=== PATIENT | female | born 1985 | race African-American/Black ===

== ENCOUNTER 2021-10-17 14:40 | Inpatient (IN) | payer OTHER, SELFPAY ==
--- NOTE | 2021-10-17 | ECG_ITS ---
Test Reason : SUBST ABUSE Blood Pressure : / mmHG Vent. Rate : 077 BPM Atrial Rate : 077 BPM P-R Int : 140 ms QRS Dur : 076 ms QT Int : 392 ms P-R-T Axes : 066 056 053 degrees QTc Int : 443 ms Normal sinus rhythm Normal ECG No previous ECGs available Referred By: Aden Reyes Electronically Signed By:CADEN DUMONT
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
[2021-10-17 18:00] VITALS: BP 152/89; PULSE 91; RESP 16; TEMP 36.1; O2SAT 99
[2021-10-17] MEDS: LORazepam 1 MG TABLET 2 MG PO (19:39)
[2021-10-17] MEDS: HaloperidoL 5 MG TABLET PO (19:39)
[2021-10-17 20:21] VITALS: BMI 19.5
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
[2021-10-17] MEDS: Acetaminophen 325 MG TABLET 650 MG PO (21:55)
[2021-10-17] MEDS: OLANZapine 10 MG TABLET PO (21:55)
[2021-10-18] MEDS: cloNIDine HCL 0.1 MG TABLET PO ×2 (01:16→19:27)
[2021-10-18 06:00] VITALS: BP 127/74; PULSE 97; RESP 18; TEMP 36.3; O2SAT 99
[2021-10-18] MEDS: LORazepam 1 MG TABLET 2 MG PO (10:47)
[2021-10-18] MEDS: OLANZapine ODT 10 MG TAB.RAPDIS 20 MG TRANSLINGU (10:47)
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
[2021-10-18 19:20] VITALS: BP 140/98; PULSE 114; TEMP 36.3
[2021-10-18] MEDS: Acetaminophen 325 MG TABLET 650 MG PO (19:26)
[2021-10-18] MEDS: LORazepam 1 MG TABLET PO (19:26)
[2021-10-18] MEDS: hydrOXYzine HCL 25 MG TABLET PO (19:27)
[2021-10-18] MEDS: OLANZapine 10 MG TABLET 20 MG PO (22:34)
[2021-10-18] MEDS: QUEtiapine Fumarate 50 MG TABLET PO (22:38)
[2021-10-19] MEDS: LORazepam 1 MG TABLET PO ×5 (01:48→22:15)
[2021-10-19] MEDS: Acetaminophen 325 MG TABLET 650 MG PO ×2 (01:48→08:41)
[2021-10-19] MEDS: traZODone HCL 50 MG TABLET PO ×2 (01:59→22:15)
[2021-10-19] MEDS: hydrOXYzine HCL 25 MG TABLET PO ×2 (04:10→10:48)
[2021-10-19 06:00] VITALS: BP 137/94; PULSE 93; RESP 18; TEMP 36.3; O2SAT 99
--- NOTE | 2021-10-19 07:14 | PM.EVENT ---
Event Note Date of Service: 10/18/21 Event Note: Attempted to see pt at 11:30am on 10/18/21 for routine medical H+P. She was sleeping heavily, having just receivevd olanzapine, and thus could not be evaluated. Will reattempt at another time.
[2021-10-19] MEDS: OLANZapine ODT 10 MG TAB.RAPDIS TRANSLINGU (08:13)
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
[2021-10-19] MEDS: OLANZapine 5 MG TABLET PO (11:28)
[2021-10-19] MEDS: Albuterol Sulfate 90 MCG 8 GM INHALER 2 PUFF INHALE ×2 (11:28→18:25)
--- NOTE | 2021-10-19 11:32 | PC.NURSE ---
Patient labile, tearful, irritable in later morning. Redirectable, willing to take PRN medications.
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
[2021-10-19] MEDS: Divalproex Sodium 500 MG TABLET.DR PO ×2 (13:07→22:15)
[2021-10-19 18:20] VITALS: BP 140/90; PULSE 101; RESP 20; O2SAT 100
[2021-10-19] MEDS: cloNIDine HCL 0.1 MG TABLET PO ×2 (18:25→22:15)
[2021-10-19] MEDS: OLANZapine 10 MG TABLET 20 MG PO (22:15)
[2021-10-20] MEDS: LORazepam 1 MG TABLET PO ×2 (02:22→07:56)
[2021-10-20] MEDS: traZODone HCL 50 MG TABLET PO (02:22)
[2021-10-20 06:00] VITALS: BP 140/88; PULSE 95; RESP 18; TEMP 36.6; O2SAT 100
[2021-10-20] MEDS: OLANZapine ODT 10 MG TAB.RAPDIS TRANSLINGU (07:56)
[2021-10-20] MEDS: Divalproex Sodium 500 MG TABLET.DR PO (07:56)
[2021-10-20] MEDS: cloNIDine HCL 0.1 MG TABLET PO (07:59)
[2021-10-20 08:00] VITALS: BP 131/89; PULSE 101; RESP 16
[2021-10-20 08:32] LABS: CT PCR NOT DETECTED (Not Detect.); NG PCR NOT DETECTED (Not Detect.)
[2021-10-20 08:38] LABS: HBc Num1 0.25 S/CO (0.00-0.79); Hepatitis B Core Antibody Nonreactive (Nonreactive)
[2021-10-20 08:57] LABS: HBS Num1 > 1000.00 mIU/mL (0-7.99); HBsAGNum1 0.36 S/CO (0.00-0.99); HIV AB/AG Nonreactive (Nonreactive); HIV Num 1 0.07 S/CO (0.00-0.99); Hepatitis B Surface Antigen Negative (Negative); ~HepC Num1 0.15 S/CO (0.00-0.79); ~Hepatitis B Surface Antibody REACTIVE (Nonreactive); ~Hepatitis C Antibody Nonreactive (Nonreactive)
[2021-10-20 09:12] LABS: Syphilis Screen Nonreactive (Nonreactive)
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
== END 2021-10-20 12:05 | disposition home or self-care (01) | DRG 750 ==
PROVIDERS: Family Medicine; Admitting Provider Psychiatry & Neurology Psychiatry; PCP Internal Medicine; Visit Provider Psychiatry & Neurology Psychiatry
DX: F25.0 Schizoaffective disorder, bipolar type (principal); Z59.02 Unsheltered homelessness; F19.10 Other psychoactive substance abuse, uncomplicated; J45.909 Unspecified asthma, uncomplicated; F43.10 Post-traumatic stress disorder, unspecified; Z79.899 Other long term (current) drug therapy
CPT/HCPCS: 36415; 86704; 86706; 86780; 86803; 87340; 87389; 87491; 87591; 93005